=== PATIENT | female | born 1965 | race Caucasian/White ===

== ENCOUNTER 2017-05-29 11:11 | Emergency (ER) | payer OTHER ==
[2017-05-29 12:00] LABS: BILIRUBIN,URINE NEGATIVE (NEG); CLARITY,URINE CLEAR; COLOR,URINE YELLOW; GLUCOSE,URINE NEGATIVE (NEG); NITRITE,URINE NEGATIVE (NEG); PROTEIN,URINE NEGATIVE (NEG-TRACE); UROBILINOGEN,URINE 0.2 mg/dL (0.2 mg/dL)
[2017-05-29 12:07] LABS: BACTERIA,URINE 0 /HPF (0-FEW); RBC,URINE 0 /HPF (0-2); SQUAMOUS EPITHELIAL CELL,UR FEW /LPF
[2017-05-29] MEDS: IV NORMAL SALINE 1000ML BAG 1,000 ML IV ×2 (12:17)
[2017-05-29 12:18] LABS: ADD MAN DIFF? NO
[2017-05-29] MEDS: ONDANSETRON PF 4 MG/2 ML VIAL. IV ×2 (12:18)
[2017-05-29] MEDS: fentaNYL PF VIAL 100 MCG/2 ML VIAL IV ×2 (12:19)
[2017-05-29 12:21] LABS: BASO # 0.1 x10^3/uL (0.0-0.2); BASO % 1 % (0-3); EOS # 0.3 x10^3/uL (0.0-0.7); EOS % 5 % (0-3); HEMATOCRIT 39.1 % (36.0-47.0); HEMOGLOBIN 13.5 g/dL (12.0-15.5); LYMPH % 31 % (24-48); MEAN CORPUSCULAR HEMOGLOBIN 30 pg (25-35); MEAN CORPUSCULAR HGB CONC 34 g/dL (31-37); MEAN CORPUSCULAR VOLUME 88 fL (79-100); MONO # 0.7 x10^3/uL (0.0-1.1); MONO % 10 % (0-9); NEUT # 3.5 x10^3uL (1.8-7.7); NEUT % 53 % (31-73); PLATELET COUNT 244 x10^3/uL (140-400); RED BLOOD COUNT 4.46 x10^6/uL (3.50-5.40); RED CELL DISTRIBUTION WIDTH 13.6 % (11.5-14.5); WHITE BLOOD COUNT 6.5 x10^3/uL (4.0-11.0)
[2017-05-29 12:30] LABS: ANION GAP 8 (6-14); BLOOD UREA NITROGEN 10 mg/dL (7-20); BUN/CREATININE RATIO 13 (6-20); CALCIUM 9.6 mg/dL (8.5-10.1); CARBON DIOXIDE 28 mmol/L (21-32); CHLORIDE 101 mmol/L (98-107); CREATININE 0.8 mg/dL (0.6-1.0); GFR 75.6; GLUCOSE 94 mg/dL (70-99); SODIUM 137 mmol/L (136-145)
[2017-05-29 12:37] LABS: ALBUMIN 3.9 g/dL (3.4-5.0); ALBUMIN/GLOBULIN RATIO 1.1 (1.0-1.7); ALK PHOS 80 U/L (46-116); ALT (SGPT) 26 U/L (14-59); AST (SGOT) 25 U/L (15-37); LIPASE 179 U/L (73-393); TOTAL BILIRUBIN 0.3 mg/dL (0.2-1.0); TOTAL PROTEIN 7.4 g/dL (6.4-8.2)
== END 2017-05-29 14:03 | disposition home or self-care (01) ==
LOC: ER 11:11
DX: R10.32 Left lower quadrant pain (principal); F41.9 Anxiety disorder, unspecified; K21.9 Gastro-esophageal reflux disease without esophagitis; E03.9 Hypothyroidism, unspecified
CPT/HCPCS: 36415; 74176; 80053; 81001; 83690; 85025; 87086; 96361; 96374; 96375; 99285-25; J2405; J3010; J7030

== ENCOUNTER → 2018-02-04 | Outpatient (CLI) | payer OTHER ==
[2017-05-29 13:57] VITALS: BP 109/57
[~2018-02-04] MED LIST: CYCL10TA2 PO; METH4TAB2 PO
--- NOTE | 2018-02-04 11:11 | KCIC ---
EXAM: Bilateral digital screening mammogram with tomosynthesis. HISTORY: 52-year-old female presents for screening mammography. TECHNIQUE: Full-field digital craniocaudal and mediolateral oblique 2D and 3D tomosynthesis images of both breasts are obtained for evaluation. Computer aided detection with [employer]D software version 9.3 was applied. COMPARISON: 06/29/2017 BREAST PARENCHYMAL DENSITY: Level A - Mostly fat. FINDINGS: There are small nodular densities within the superior right breast, corresponding with the element o'clock and 11:30 positions at mid depth and anterior to mid depth on the craniocaudal images. There is no suspicious ossification or distortion within either breast. IMPRESSION: BI-RADS Category 0: Additional imaging needed. RECOMMENDATION: Further evaluation with a right breast sonogram targeted to the superior right breast at mid and anterior to mid depth to assess small nodular densities is recommended. If your mammogram demonstrates that you have dense breast tissue, which could hide abnormalities, and if you have other risk factors for breast cancer that have been identified, you might benefit from supplemental screening tests that may be suggested by your ordering physician. Dense breast tissue, in and of itself, is a relatively common condition. This information is not provided to cause undue concern, but rather to raise your awareness and to promote discussion with your physician regarding the presence of other risk factors, in addition to dense breast tissue. A report of your mammography results will be sent to you and your physician. You should contact your physician if you have any questions or concerns regarding this report. Mammography is a sensitive method for finding small breast cancers, but it does not detect them all and is not a substitute for careful clinical examination. A negative mammogram does not negate a clinically suspicious finding and should not result in delay in biopsying a clinically suspicious abnormality. PQRS compliance statement - Patient information was entered into a reminder system with a target due date for the next mammogram. "Our facility is accredited by the [employer] Mammography [employer]." Electronically signed by: Paula Leroy MD (02/04/2018 11:08 AM) [id number]
== END | disposition home or self-care (01) ==
LOC: KCIC MAMMO 10:20
PROVIDERS: ATTEND Family Medicine
DX: Z12.31 Encounter for screening mammogram for malignant neoplasm of breast (principal)
CPT/HCPCS: 77063; 77067

== ENCOUNTER → 2018-02-21 | Outpatient (CLI) | payer OTHER ==
[2017-05-29 13:57] VITALS: BP 109/57
--- NOTE | 2018-02-21 09:53 | KCIC ---
EXAM: Right breast sonogram. HISTORY: 52-year-old female presents for evaluation of nodularity within the right breast demonstrated on a mammogram dated 02/04/2018. TECHNIQUE: Sonographic imaging of the right breast targeted to the upper outer quadrant was performed. COMPARISON: 02/04/2018. FINDINGS: There is no suspicious correlate for small areas of nodular density within the 11:00 and 11:30 positions of the right breast at mid depth and anterior to mid depth on the prior screening mammogram. This may be due to sonographically occult intramedullary lymph nodes or cold fibrocystic changes. There is no suspicious sonographic finding. IMPRESSION: 1. No suspicious sonographic correlate for nodularity within the right breast demonstrated mammographically. 2. BI-RADS Category 3: Probably benign finding(s). Short term follow up with a diagnostic right breast mammogram in 3 months is recommended to confirm mammographic stability. Sonographic imaging can be performed at the time of follow-up if deemed indicated based on mammographic findings. Electronically signed by: Paula Leroy MD (02/21/2018 9:50 AM) [id number]
== END | disposition home or self-care (01) ==
LOC: KCIC US 08:57
PROVIDERS: ATTEND Family Medicine
DX: R92.8 Other abnormal and inconclusive findings on diagnostic imaging of breast (principal)
CPT/HCPCS: 76641

== ENCOUNTER → 2018-05-25 | Outpatient (CLI) | payer OTHER ==
[2017-05-29 13:57] VITALS: BP 109/57
--- NOTE | 2018-05-25 14:41 | KCIC ---
Right breast diagnostic digital mammograms with 3-D tomosynthesis: Reason for examination: Follow-up nodule. Comparison is made to previous study dated 02/04/2018 and 03/05/2016. Right breast mammograms in CC and oblique projections were obtained with 2-D imaging and 3-D tomosynthesis imaging on a [employer] Inspiration unit and reviewed on the workstation. Interpretation was made with the benefit of CAD. The skin and nipple show no abnormalities. No abnormal axillary lymph nodes are seen. The breast parenchyma shows scattered fatty and fibroglandular density. (Breast density: Category B.) There continues to be a small nodular parenchymal density at the 11:00 B position of the right breast which is unchanged and a represent a small intramammary lymph node. There are no new dominant masses, suspicious calcifications or architectural distortion. Impression: Continued presence of a subtle nodule at the 11:00 B position of the right breast with no interval change evident. Ultrasound to follow. BI-RADS Category 0: Incomplete. Needs additional imaging evaluation. Right breast ultrasound: Comparison is made to previous study dated 02/21/2018. Ultrasound examination was performed with attention to the upper outer quadrant. No discrete cystic or solid nodules are seen. No abnormal appearing lymph nodes are seen in the axilla. IMPRESSION: No abnormality seen sonographically in the right breast. The nodule may represent a small intramammary lymph node which is blending with the fatty tissue of the parenchyma. Recommend continue follow-up at the time of bilateral mammograms. BI-RADS Category 3: Probably benign. "Our facility is accredited by the [employer] Mammography Program." This patient's information has been entered into a reminder system for the patient to be notified with the results of her examination and a target date for the next mammogram. Electronically signed by: Radha Rodriguez MD (05/25/2018 2:36 PM) [id number]
== END | disposition home or self-care (01) ==
LOC: KCIC MAMMO 08:54
PROVIDERS: ATTEND Family Medicine
DX: N63.11 Unspecified lump in the right breast, upper outer quadrant (principal)
CPT/HCPCS: 76641; 77065; G0279; 77061

== ENCOUNTER → 2019-02-09 | Outpatient (CLI) | payer OTHER ==
[2017-05-29 13:57] VITALS: BP 109/57
--- NOTE | 2019-02-09 11:05 | KCIC ---
BILATERAL DIAGNOSTIC 3-D MAMMOGRAPHY History: Follow-up right breast nodule. Comparison: Bilateral mammogram February 04, 2018. Diagnostic right mammogram and breast ultrasound May 25, 2018. Technique: Routine MLO and CC tomosynthesis (3D) digital views performed. Images reviewed by the radiologist at dedicated workstation. Findings: Breast Tissue Density B : There are scattered areas of fibroglandular density. The tiny nodule in the right breast 11:00 B position is stable. There are no dominant masses, suspicious microcalcifications or architectural distortion. IMPRESSION: No mammographic evidence of malignancy. Recommend routine mammogram screening. BI-RADS category 2: Benign findings. The images were reviewed with computer-aided detection. Patient information is entered into the reminder system with a target due date for the next screening mammogram. Mammography is the most sensitive method for finding small breast cancers, but it does not detect them all and is not a substitute for careful clinical examination. A negative mammogram does not negate a clinically suspicious finding and should not result in delay in biopsying a clinically suspicious abnormality. "Our facility is accredited by the [employer] Mammography Program." Electronically signed by: Thierno Norwood MD (02/09/2019 11:02 AM) [facility]
== END | disposition home or self-care (01) ==
LOC: KCIC MAMMO 10:01
PROVIDERS: ATTEND Family Medicine
DX: N63.11 Unspecified lump in the right breast, upper outer quadrant (principal)
CPT/HCPCS: 77066; G0279; 77062

== ENCOUNTER → 2020-02-12 | Outpatient (CLI) | payer OTHER ==
[2017-05-29 13:57] VITALS: BP 109/57
--- NOTE | 2020-02-12 19:42 | KCIC ---
BILATERAL SCREENING MAMMOGRAM, 3-D History: Routine screening. Comparison: Bilateral mammogram 02/04/2018. Technique: MLO and CC digital tomosynthesis (3D) images obtained. Radiologist reviewed these images on dedicated workstation. Findings: Breast Tissue Density A : The breasts are almost entirely fatty. 2 small glandular nodularities of the upper right breast are stable. There are no dominant masses, suspicious microcalcifications, or architectural distortion. IMPRESSION: No mammographic evidence of malignancy. Recommend routine screening. BI-RADS category 2: Benign findings. The images were reviewed with computer-aided detection. Patient information is entered into reminder system with a target due date for the next screening mammogram. Mammography is the most sensitive method for finding small breast cancers, but it does not detect them all and is not a substitute for careful clinical examination. A negative mammogram does not negate a clinically suspicious finding and should not result in delay in biopsying a clinically suspicious abnormality. "Our facility is accredited by the [employer] Mammography Program." Electronically signed by: Thierno Norwood MD (02/12/2020 7:39 PM) [facility]
== END ==
LOC: KCIC MAMMO 14:40
PROVIDERS: ATTEND Family Medicine
DX: Z12.31 Encounter for screening mammogram for malignant neoplasm of breast (principal); N64.89 Other specified disorders of breast
CPT/HCPCS: 77063; 77067

== ENCOUNTER → 2021-02-12 | Outpatient (CLI) | payer OTHER ==
[2017-05-29 13:57] VITALS: BP 109/57
--- NOTE | 2021-02-12 11:55 | KCIC ---
Bilateral digital screening mammograms with 3-D tomosynthesis: Reason for examination: Routine screening. Comparison is made to previous studies dated back to 03/05/2016. Bilateral mammograms in CC and oblique projections were obtained with 2-D imaging and 3-D tomosynthes is imaging on a [employer] Inspiration unit and reviewed on the workstation. Interpretation was made with the benefit of CAD. The skin and nipples show no abnormalities. No abnormal axillary lymph nodes are seen. The breast par enchyma is predominantly fatty. (Breast density: Category A.) There continue to be small nodular pare nchymal densities bilaterally which are stable. There does appear to be a small circumscribed nodule with calcifications anteriorly in the upper outer quadrant of the right breast which may represent a small degenerating fibroadenoma. There are no new dominant masses, suspicious calcifications or archi tectural distortion. Impression: No evidence of malignancy. Recommend routine screening. BI-RAD Category 2: Benign. "Our facility is accredited by the [employer] Mammography Program." This patient's information has been entered into a reminder system for the patient to be notified wit h the results of her examination and a target date for the next mammogram. Electronically signed by: Radha Rodriguez MD (02/12/2021 11:53 AM) [email or web address]
== END ==
LOC: KCIC MAMMO 10:19
PROVIDERS: ATTEND Family Medicine
DX: Z12.31 Encounter for screening mammogram for malignant neoplasm of breast (principal)
CPT/HCPCS: 77063; 77067